=== PATIENT | female | born 1995 | race Caucasian/White ===

== ENCOUNTER 2019-05-04 10:37 | Inpatient (IN) | payer BC ==
[2019-05-04] MEDS ORDERED: Nalbuphine 10 MG/1 ML Vial IVPUSH PRN (10:50)
[2019-05-04] MEDS ORDERED: Lidocaine 1% 50 ML MDV INJECT PRN (10:50)
[2019-05-04] MEDS ORDERED: Carboprost Tromethamine 250 MCG/1 ML Amp IM PRN (10:50)
[2019-05-04] MEDS ORDERED: Butorphanol 1 MG/ML SDV IVPUSH PRN (10:50)
[2019-05-04] MEDS ORDERED: Sodium Chloride 0.9% 2.5 ML Syringe FLUSH PRN (10:50)
[2019-05-04] MEDS ORDERED: Misoprostol 200 MCG Tab PO PRN (10:50)
[2019-05-04] MEDS ORDERED: Sodium Chloride 0.9% 10 ML SDV IV PRN (10:50)
[2019-05-04] MEDS ORDERED: Methylergonovine 0.2 MG/1 ML Amp IM PRN (10:50)
[2019-05-04] MEDS ORDERED: Tranexamic Acid 1,000 MG in Sodium Chloride 0.9% 100 ML IV PRN (10:50)
[2019-05-04] MEDS ORDERED: Water For Irrigation,Sterile 1,000 ML Container IRR PRN (10:50)
[2019-05-04] MEDS ORDERED: Sodium Chloride 0.9% 10 ML Syringe FLUSH PRN (10:50)
[2019-05-04] MEDS ORDERED: Oxytocin/0.9 % Sodium Chloride 30 UNIT/500 ML BAG IV SCH ×2 (11:00→12:30)
[2019-05-04] MEDS ORDERED: Terbutaline 1 MG/ML SDV SUBCUT PRN (12:17)
[2019-05-04] MEDS ORDERED: Misoprostol 25 MCG (1/4 of 100 MCG) Tab VAG PRN ×2 (12:17)
[2019-05-04] MEDS: Lactated Ringers 1,000 ML IV SCH ×4 (17:10→21:25)
--- NOTE | 2019-05-04 19:53 | PCM.PREANE ---
Preanesthetic Assessment - Anesthesia/Transfusion/Family Hx Anesthesia History: Prior Anesthesia Without Reaction Transfusion History: No Prior Transfusion(s) - Review of Systems General: No Symptoms Pulmonary: No Symptoms Cardiovascular: No Symptoms Gastrointestinal: No Symptoms Neurological: No Symptoms Other: Reports: None - Physical Assessment NPO Status Date: 05/04/19 NPO Status Time: 19:40 Height: 1.65 m Weight: 77.111 kg ASA Class: 2E Mental Status: Alert & Oriented x3 Airway Class: Mallampati = 2 Dentition: Reports: Normal Dentition Thyro-Mental Finger Breadths: 3 Mouth Opening Finger Breadths: 3 ROM/Head Extension: Full Lungs: Clear to Auscultation, Normal Respiratory Effort Cardiovascular: Regular Rate, Regular Rhythm - Lab Values: Laboratory Last Values WBC 9.00 K/uL (4.0-11.0) 05/04/19 11:26 RBC 3.92 M/uL (4.30-5.90) L 05/04/19 11:26 Hgb 12.9 g/dL (12.0-16.0) 05/04/19 11:26 Hct 36.8 % (36.0-46.0) 05/04/19 11:26 MCV 93.9 fL (80.0-98.0) 05/04/19 11:26 MCH 32.9 pg (27.0-32.0) H 05/04/19 11:26 MCHC 35.1 g/dL (31.0-37.0) 05/04/19 11:26 RDW Std Deviation 45.7 fl (28.0-62.0) 05/04/19 11:26 RDW Coeff of Brock 13 % (11.0-15.0) 05/04/19 11:26 Plt Count 243 K/uL (150-400) 05/04/19 11:26 MPV 10.60 fL (7.40-12.00) 05/04/19 11:26 Nucleated RBC % 0.0 /100WBC 05/04/19 11:26 Nucleated RBCs # 0 K/uL 05/04/19 11:26 Blood Type A POSITIVE 05/04/19 11:26 Antibody Screen NEGATIVE 05/04/19 11:26 - Allergies Allergies/Adverse Reactions: Allergies Allergy/AdvReac Type Severity Reaction Status Date / Time No Known Allergies Allergy Verified 06/08/16 20:23 - Acknowledgements Anesthesia Type Planned: Epidural Pt an Appropriate Candidate for the Planned Anesthesia: Yes Alternatives and Risks of Anesthesia Discussed w Pt/Guardian: Yes Pt/Guardian Understands and Agrees with Anesthesia Plan: Yes PreAnesthesia Questionnaire HEENT History: Reports: None Cardiovascular History: Reports: None Respiratory History: Reports: None Gastrointestinal History: Reports: None Genitourinary History: Reports: None [employer] History: Reports: Musculoskeletal History: Reports: None Neurological History: Reports: None Psychiatric History: Reports: None Endocrine/Metabolic History: Reports: None Hematologic History: Reports: None Immunologic History: Reports: None Oncologic (Cancer) History: Reports: None Dermatologic History: Reports: None - Infectious Disease History Infectious Disease History: Reports: None - Past Surgical History HEENT Surgical History: Reports: Oral Surgery Other HEENT Surgeries/Procedures: wisdome teeth extraction-with sedation Cardiovascular Surgical History: Reports: None Respiratory Surgical History: Reports: None GI Surgical History: Reports: None Female Surgical History: Reports: None Musculoskeletal Surgical History: Reports: None - SUBSTANCE USE Smoking Status *Q: Never Smoker Second Hand Smoke Exposure: No Recreational Drug Use History: No - HOME MEDS Home Medications: Home Meds . [No Known Home Meds] 06/08/16 [History] - CURRENT (IN HOUSE) MEDS Current Meds: Current Medications Butorphanol Tartrate (Stadol) 1 mg IVPUSH Q1H PRN PRN Reason: Pain Carboprost Tromethamine (Hemabate Ds) 250 mcg IM ASDIRECTED PRN PRN Reason: Post Hemorrhage Lactated Ringer's (Ringers, Lactated) 1,000 mls @ 150 mls/hr IV ASDIRECTED CHAPO Last Admin: 05/04/19 17:10 Dose: 150 mls/hr Oxytocin/Sodium Chloride (Oxytocin 30 Unit/500 Ml-Ns) 30 unit in 500 mls @ 500 mls/hr IV TITRATE CHAPO Tranexamic Acid 1,000 mg/ (Sodium Chloride) 110 mls @ 660 mls/hr IV ONETIME PRN PRN Reason: Bleeding Oxytocin/Sodium Chloride (Oxytocin 30 Unit/500 Ml-Ns) 30 unit in 500 mls @ 2 mls/hr IV TITRATE CHAPO; Protocol Last Titration: 05/04/19 18:40 Dose: 6 munits/min, 6 mls/hr Lidocaine HCl (Xylocaine 1%) 50 ml INJECT ONETIME PRN PRN Reason: Laceration repair Methylergonovine Maleate (Methergine) 0.2 mg IM ASDIRECTED PRN PRN Reason: Post Hemorrhage Misoprostol (Cytotec) 200 mcg PO ONETIME PRN PRN Reason: Post Hemorrhage Misoprostol (Cytotec) 25 mcg VAG ONETIME PRN PRN Reason: Cervical Ripening Last Admin: 05/04/19 12:44 Dose: 25 mcg Misoprostol (Cytotec) 25 mcg VAG Q4H PRN PRN Reason: Cervical Ripening Nalbuphine HCl (Nubain) 10 mg IVPUSH Q1H PRN PRN Reason: Pain (severe 7-10) Sodium Chloride (Saline Flush) 10 ml FLUSH ASDIRECTED PRN PRN Reason: Keep Vein Open Sodium Chloride (Saline Flush) 2.5 ml FLUSH ASDIRECTED PRN PRN Reason: Keep Vein Open Sodium Chloride (Normal Saline) 10 ml IV ASDIRECTED PRN PRN Reason: IV Use Sterile Water (Sterile Water For Irrigation) 1,000 ml IRR ASDIRECTED PRN PRN Reason: delivery Terbutaline Sulfate (Brethine) 0.25 mg SUBCUT ASDIRECTED PRN PRN Reason: Tacysystole
[2019-05-04] MEDS ORDERED: Ropivacaine HCl/PF 100 ML ONE (20:10)
[2019-05-04] MEDS ORDERED: Lanolin 100% Cream 7 GM Tube TOP PRN (23:03)
[2019-05-04] MEDS ORDERED: Famotidine 20 MG Tab PO PRN (23:03)
[2019-05-04] MEDS ORDERED: Ibuprofen 800 MG Tab PO PRN (23:03)
[2019-05-04] MEDS ORDERED: Witch Hazel Medicated Pads 40/Jar TOP PRN (23:03)
[2019-05-04] MEDS ORDERED: Docusate Sodium 100 MG Cap PO PRN (23:03)
[2019-05-04] MEDS ORDERED: oxyCODONE 5 MG Tab PO PRN (23:03)
[2019-05-04] MEDS ORDERED: Benzocaine/Menthol 20%-0.5% Spray 78 GM Cannister TOP PRN (23:03)
[2019-05-04] MEDS ORDERED: Simethicone 80 MG Tab.Chew PO PRN (23:03)
[2019-05-04] MEDS ORDERED: Bisacodyl 10 MG Supp RECTAL PRN (23:03)
[2019-05-04] MEDS ORDERED: Acetaminophen 500 MG Tab PO PRN ×2 (23:03)
--- NOTE | 2019-05-04 23:12 | PCM.OPNOTE ---
- General Post-Op/Procedure Note Date of Surgery/Procedure: 05/04/19 Operative Procedure(s): Spontaneous vaginal delivery Findings: Live female infant, Apgars 8/9, weight pending, cord gases pending Pre Op Diagnosis: 23yo at 41w0d. Induction of labor for post-dates Post-Op Diagnosis: 23yo s/p spontaneous vaginal delivery at 41w0d Anesthesia Technique: Epidural Primary Surgeon: Vicki Nur Pathology: Placenta, cord gases, cord blood EBL in mLs: 300 Complications: none Condition: Good
--- NOTE | 2019-05-05 01:38 | OR ---
SURGEON: Vicki Nur MD DATE OF PROCEDURE: 05/04/2019 PREOPERATIVE DIAGNOSIS: A 23-year-old, G2, P0010 at 41 weeks and 0 days gestation being induced for post dates. POSTOPERATIVE DIAGNOSIS: A 23-year-old, G2, P1-0-1-1 status post spontaneous vaginal delivery at 41 weeks and 0 days gestation. PROCEDURE: Spontaneous vaginal delivery. PRIMARY SURGEON: Vicki Nur MD. ANESTHESIA: Epidural. ESTIMATED BLOOD LOSS: 300 mL. FINDINGS: Live female in cephalic presentation. score of 8 and 9 at 1 and 5 minutes respectively. Umbilical artery pH 7.17, umbilical vein pH 7.25. Weight 3630g. DESCRIPTION OF PROCEDURE: The patient presented from clinic for induction of labor due to postdates. Induction of labor began with Cytotec. After 1 dose of Cytotec, she had spontaneous rupture of membranes. At that time, Pitocin was begun. She received an epidural. She progressed to complete cervical dilation. She pushed and delivered a live female infant, score of 8 and 9 at 1 and 5 minutes respectively. The head delivered followed by the shoulders and remainder of body. The infant was placed on the maternal abdomen. After 60 seconds of delayed cord clamping, the cord was clamped and cut. The placenta then delivered spontaneously intact and with 3-vessel cord. Cord gases and cord blood were obtained. The perineum was inspected. Two perineal abrasions were noted and were hemostatic with pressure. Estimated blood loss was 300 mL. The patient and baby tolerated the delivery well. [id number] / MODL /[id number] MTDD
--- NOTE | 2019-05-05 07:46 | PCM48HPAN ---
Post Anesthesia Note - EVALUATION WITHIN 48HRS OF ANESTHETIC Vital Signs in Normal Range: Yes Patient Participated in Evaluation: Yes Respiratory Function Stable: Yes Airway Patent: Yes Cardiovascular Function Stable: Yes Hydration Status Stable: Yes Pain Control Satisfactory: Yes Nausea and Vomiting Control Satisfactory: Yes Mental Status Recovered: Yes Vital Signs: Last Vital Signs Temp 36.3 C 05/05/19 03:17 Pulse 79 05/05/19 03:17 Resp 16 05/05/19 03:17 BP 128/71 05/05/19 03:17 Pulse Ox 98 05/05/19 03:17 - COMMENTS/OBSERVATIONS Free Text/Narrative:: The patient tolerated the procedure well. There were no apparent anesthetic complications at this time.
--- NOTE | 2019-05-05 09:30 | PCM.PNPP ---
- General Info Date of Service: 05/05/19 Admission Dx/Problem (Free Text): Patient doing well. Moderate lochia. Denies pain. going well. Functional Status: Reports: Pain Controlled, Tolerating Diet, Ambulating, Urinating - Review of Systems General: Denies: Fever HEENT: Reports: No Symptoms Pulmonary: Denies: Shortness of Breath Cardiovascular: Denies: Chest Pain Gastrointestinal: Denies: Abdominal Pain Genitourinary: Denies: Dysuria Musculoskeletal: Reports: No Symptoms Skin: Reports: No Symptoms Neurological: Reports: No Symptoms Psychiatric: Reports: No Symptoms - Patient Data Vital Signs - Most Recent: Last Vital Signs Temp 36.6 C 05/05/19 08:40 Pulse 64 05/05/19 08:40 Resp 17 05/05/19 08:40 BP 126/69 05/05/19 08:40 Pulse Ox 98 05/05/19 08:40 Weight - Most Recent: 77.111 kg Lab Results - Last 24 Hours: Laboratory Results - last 24 hr 05/04/19 05/04/19 05/04/19 Range/Units 11:26 11:26 22:47 WBC 9.00 (4.0-11.0) K/uL RBC 3.92 L (4.30-5.90) M/uL Hgb 12.9 (12.0-16.0) g/dL Hct 36.8 (36.0-46.0) % MCV 93.9 (80.0-98.0) fL MCH 32.9 H (27.0-32.0) pg MCHC 35.1 (31.0-37.0) g/dL RDW Std Deviation 45.7 (28.0-62.0) fl RDW Coeff of Brock 13 (11.0-15.0) % Plt Count 243 (150-400) K/uL MPV 10.60 (7.40-12.00) fL Nucleated RBC % 0.0 /100WBC Nucleated RBCs # 0 K/uL Cord ABG pH 7.171 L (7.18-7.38) Cord ABG Base Excess -11 L (-10--2) Cord VBG pH 7.251 (7.25-7.45) Cord VBG Base Excess -11 L (-10--2) Blood Type A POSITIVE Antibody Screen NEGATIVE 05/05/19 Range/Units 05:55 WBC (4.0-11.0) K/uL RBC (4.30-5.90) M/uL Hgb 12.1 (12.0-16.0) g/dL Hct 35.1 L (36.0-46.0) % MCV (80.0-98.0) fL MCH (27.0-32.0) pg MCHC (31.0-37.0) g/dL RDW Std Deviation (28.0-62.0) fl RDW Coeff of Brock (11.0-15.0) % Plt Count (150-400) K/uL MPV (7.40-12.00) fL Nucleated RBC % /100WBC Nucleated RBCs # K/uL Cord ABG pH (7.18-7.38) Cord ABG Base Excess (-10--2) Cord VBG pH (7.25-7.45) Cord VBG Base Excess (-10--2) Blood Type Antibody Screen Med Orders - Current: Current Medications Acetaminophen (Tylenol Extra Strength) 500 mg PO Q4H PRN PRN Reason: Pain Acetaminophen (Tylenol Extra Strength) 1,000 mg PO Q4H PRN PRN Reason: Pain Benzocaine/Menthol (Dermoplast Pain Relief 20%-0.5% [place]) 78 gm TOP ASDIRECTED PRN PRN Reason: Perineal Comfort Measure Last Admin: 05/05/19 03:19 Dose: 1 can Bisacodyl (Dulcolax) 10 mg RECTAL ONETIME PRN PRN Reason: Constipation Butorphanol Tartrate (Stadol) 1 mg IVPUSH Q1H PRN PRN Reason: Pain Carboprost Tromethamine (Hemabate Ds) 250 mcg IM ASDIRECTED PRN PRN Reason: Post Hemorrhage Docusate Sodium (Colace) 100 mg PO BID PRN PRN Reason: Constipation Emollient Ointment (Lansinoh Hpa) 0 gm TOP ASDIRECTED PRN PRN Reason: Sore Nipples Famotidine (Pepcid) 20 mg PO BID PRN PRN Reason: Heartburn Lactated Ringer's (Ringers, Lactated) 1,000 mls @ 150 mls/hr IV ASDIRECTED CHAPO Last Admin: 05/04/19 21:25 Dose: 150 mls/hr Oxytocin/Sodium Chloride (Oxytocin 30 Unit/500 Ml-Ns) 30 unit in 500 mls @ 500 mls/hr IV TITRATE CHAPO Tranexamic Acid 1,000 mg/ (Sodium Chloride) 110 mls @ 660 mls/hr IV ONETIME PRN PRN Reason: Bleeding Oxytocin/Sodium Chloride (Oxytocin 30 Unit/500 Ml-Ns) 30 unit in 500 mls @ 2 mls/hr IV TITRATE CHAPO; Protocol Last Titration: 05/04/19 22:07 Dose: 6 munits/min, 6 mls/hr Ibuprofen (Motrin) 800 mg PO Q8H PRN PRN Reason: Pain Last Admin: 05/05/19 03:19 Dose: 800 mg Lidocaine HCl (Xylocaine 1%) 50 ml INJECT ONETIME PRN PRN Reason: Laceration repair Methylergonovine Maleate (Methergine) 0.2 mg IM ASDIRECTED PRN PRN Reason: Post Hemorrhage Misoprostol (Cytotec) 200 mcg PO ONETIME PRN PRN Reason: Post Hemorrhage Misoprostol (Cytotec) 25 mcg VAG ONETIME PRN PRN Reason: Cervical Ripening Last Admin: 05/04/19 12:44 Dose: 25 mcg Misoprostol (Cytotec) 25 mcg VAG Q4H PRN PRN Reason: Cervical Ripening Nalbuphine HCl (Nubain) 10 mg IVPUSH Q1H PRN PRN Reason: Pain (severe 7-10) Oxycodone HCl (Oxycodone) 5 mg PO Q2H PRN PRN Reason: Pain Simethicone (Simethicone) 80 mg PO Q4H PRN PRN Reason: Gas Sodium Chloride (Saline Flush) 10 ml FLUSH ASDIRECTED PRN PRN Reason: Keep Vein Open Sodium Chloride (Saline Flush) 2.5 ml FLUSH ASDIRECTED PRN PRN Reason: Keep Vein Open Sodium Chloride (Normal Saline) 10 ml IV ASDIRECTED PRN PRN Reason: IV Use Sterile Water (Sterile Water For Irrigation) 1,000 ml IRR ASDIRECTED PRN PRN Reason: delivery Last Admin: 05/04/19 21:55 Dose: 1,000 ml Terbutaline Sulfate (Brethine) 0.25 mg SUBCUT ASDIRECTED PRN PRN Reason: Tacysystole Witch Norma (Tucks) 1 pad TOP ASDIRECTED PRN PRN Reason: comfort care Last Admin: 05/05/19 03:19 Dose: 1 tube Discontinued Medications Ropivacaine (Naropin 0.2%) Confirm Administered Dose 100 mls @ as directed .ROUTE .STK-MED ONE Stop: 05/04/19 20:11 - Infant Interaction Infant Disposition, : [place] in Room with Family Infant Feeding: Attempted ; Nursed Fair/Poor Support Person: - Recovery Exam Fundal Tone: Firm Fundal Level: 1 Fingerbreadths Below Umbilicus Fundal Placement: Midline Lochia Amount: Scant Lochia Color: Rubra/Red Perineum Description: Intact, Minimal Bruising/Swelling Episiotomy/Laceration: None Bladder Status: Voiding - Exam General: Alert, Oriented Neck: Supple Lungs: Clear to Auscultation, Normal Respiratory Effort Cardiovascular: Regular Rate, Regular Rhythm GI/Abdominal Exam: Soft, Non-Tender Extremities: Normal Inspection Skin: Warm, Dry, Intact Neurological: No New Focal Deficit Psy/Mental Status: Alert, Normal Affect, Normal Mood - Problem List & Annotations (1) Vaginal delivery SNOMED Code(s): 307797876 Code(s): O80 - ENCOUNTER FOR FULL-TERM UNCOMPLICATED DELIVERY Status: Acute Current Visit: Yes - Problem List Review Problem List Initiated/Reviewed/Updated: No - My Orders Last 24 Hours: My Active Orders 05/04/19 23:03 Patient Status [ADT] Routine Notify Provider Vital Signs [RC] ASDIRECTED Acetaminophen [Tylenol Extra Strength] 1,000 mg PO Q4H PRN Acetaminophen [Tylenol Extra Strength] 500 mg PO Q4H PRN Benzocaine/Menthol [Dermoplast Pain Relief 20%-0.5% Dewar] 78 gm TOP ASDIRECTED PRN Bisacodyl [Dulcolax] 10 mg RECTAL ONETIME PRN Docusate Sodium [Colace] 100 mg PO BID PRN Famotidine [Pepcid] 20 mg PO BID PRN Ibuprofen [Motrin] 800 mg PO Q8H PRN Lanolin [Lansinoh HPA] See Dose Instructions TOP ASDIRECTED PRN Simethicone 80 mg PO Q4H PRN Witch Norma [Tucks] 1 pad TOP ASDIRECTED PRN oxyCODONE 5 mg PO Q2H PRN Assess Lochia [WOMSER] Per Unit Routine Assess Uterine Involution [WOMSER] Per Unit Routine Breast Pump [WOMSER] Per Unit Routine Ice Therapy [OM.PC] Per Unit Routine Perineal Care [OM.PC] Per Unit Routine Peripheral IV Discontinue [OM.PC] Routine Sitz Bath [OM.PC] Per Unit Routine 05/05/19 22:47 Ready for Discharge [RC] PER UNIT ROUTINE 05/05/19 Breakfast Regular Diet [DIET] - Assessment Assessment:: PPD#1 s/p spontaneous vaginal delivery - Plan Plan:: Patient desires discharge home at 24 hours if baby cleared. Reviewed discharge instructions.
[2019-05-06 08:19] VITALS: BP 127/69; PULSE 60
--- NOTE | 2019-05-06 10:44 | PCM.PNPP ---
- General Info Date of Service: 05/06/19 Admission Dx/Problem (Free Text): Patient doing well. Cramping worst when . Has been able to get some sleep. Voiding and ambulating. Minimal lochia. Functional Status: Reports: Pain Controlled, Tolerating Diet, Ambulating, Urinating - Review of Systems General: Reports: No Symptoms. Denies: Fever HEENT: Reports: No Symptoms Pulmonary: Denies: Shortness of Breath Cardiovascular: Denies: Chest Pain Gastrointestinal: Reports: Abdominal Pain Genitourinary: Reports: No Symptoms Musculoskeletal: Reports: No Symptoms Skin: Reports: No Symptoms Neurological: Reports: No Symptoms Psychiatric: Reports: No Symptoms - Patient Data Vital Signs - Most Recent: Last Vital Signs Temp 36.8 C 05/06/19 08:00 Pulse 60 05/06/19 08:00 Resp 16 05/06/19 08:00 BP 127/69 05/06/19 08:00 Pulse Ox 95 05/06/19 08:00 Weight - Most Recent: 77.111 kg Med Orders - Current: Current Medications Acetaminophen (Tylenol Extra Strength) 500 mg PO Q4H PRN PRN Reason: Pain Acetaminophen (Tylenol Extra Strength) 1,000 mg PO Q4H PRN PRN Reason: Pain Benzocaine/Menthol (Dermoplast Pain Relief 20%-0.5% [place]) 78 gm TOP ASDIRECTED PRN PRN Reason: Perineal Comfort Measure Last Admin: 05/05/19 03:19 Dose: 1 can Bisacodyl (Dulcolax) 10 mg RECTAL ONETIME PRN PRN Reason: Constipation Butorphanol Tartrate (Stadol) 1 mg IVPUSH Q1H PRN PRN Reason: Pain Carboprost Tromethamine (Hemabate Ds) 250 mcg IM ASDIRECTED PRN PRN Reason: Post Hemorrhage Docusate Sodium (Colace) 100 mg PO BID PRN PRN Reason: Constipation Emollient Ointment (Lansinoh Hpa) 0 gm TOP ASDIRECTED PRN PRN Reason: Sore Nipples Last Admin: 05/05/19 18:30 Dose: 7 gm Famotidine (Pepcid) 20 mg PO BID PRN PRN Reason: Heartburn Lactated Ringer's (Ringers, Lactated) 1,000 mls @ 150 mls/hr IV ASDIRECTED CHAPO Last Admin: 05/04/19 21:25 Dose: 150 mls/hr Oxytocin/Sodium Chloride (Oxytocin 30 Unit/500 Ml-Ns) 30 unit in 500 mls @ 500 mls/hr IV TITRATE CHAPO Tranexamic Acid 1,000 mg/ (Sodium Chloride) 110 mls @ 660 mls/hr IV ONETIME PRN PRN Reason: Bleeding Oxytocin/Sodium Chloride (Oxytocin 30 Unit/500 Ml-Ns) 30 unit in 500 mls @ 2 mls/hr IV TITRATE CHAPO; Protocol Last Titration: 05/04/19 22:07 Dose: 6 munits/min, 6 mls/hr Ibuprofen (Motrin) 800 mg PO Q8H PRN PRN Reason: Pain Last Admin: 05/05/19 03:19 Dose: 800 mg Lidocaine HCl (Xylocaine 1%) 50 ml INJECT ONETIME PRN PRN Reason: Laceration repair Methylergonovine Maleate (Methergine) 0.2 mg IM ASDIRECTED PRN PRN Reason: Post Hemorrhage Misoprostol (Cytotec) 200 mcg PO ONETIME PRN PRN Reason: Post Hemorrhage Misoprostol (Cytotec) 25 mcg VAG ONETIME PRN PRN Reason: Cervical Ripening Last Admin: 05/04/19 12:44 Dose: 25 mcg Misoprostol (Cytotec) 25 mcg VAG Q4H PRN PRN Reason: Cervical Ripening Nalbuphine HCl (Nubain) 10 mg IVPUSH Q1H PRN PRN Reason: Pain (severe 7-10) Oxycodone HCl (Oxycodone) 5 mg PO Q2H PRN PRN Reason: Pain Simethicone (Simethicone) 80 mg PO Q4H PRN PRN Reason: Gas Sodium Chloride (Saline Flush) 10 ml FLUSH ASDIRECTED PRN PRN Reason: Keep Vein Open Sodium Chloride (Saline Flush) 2.5 ml FLUSH ASDIRECTED PRN PRN Reason: Keep Vein Open Sodium Chloride (Normal Saline) 10 ml IV ASDIRECTED PRN PRN Reason: IV Use Sterile Water (Sterile Water For Irrigation) 1,000 ml IRR ASDIRECTED PRN PRN Reason: delivery Last Admin: 05/04/19 21:55 Dose: 1,000 ml Terbutaline Sulfate (Brethine) 0.25 mg SUBCUT ASDIRECTED PRN PRN Reason: Tacysystole [place] Norma (Tucks) 1 pad TOP ASDIRECTED PRN PRN Reason: comfort care Last Admin: 05/05/19 03:19 Dose: 1 tube Discontinued Medications Ropivacaine (Naropin 0.2%) Confirm Administered Dose 100 mls @ as directed .ROUTE .STK-MED ONE Stop: 05/04/19 20:11 Last Admin: 05/05/19 19:25 Dose: Not Given - Infant Interaction Disposition, : in Room with Family Interaction: Holding Infant Feeding: Attempted ; Nursed Fair/Poor Support Person: Significant Other - Recovery Exam Fundal Tone: Firm Fundal Level: 1 Fingerbreadths Below Umbilicus Fundal Placement: Midline Lochia Amount: Scant Lochia Color: Rubra/Red Perineum Description: Intact, Minimal Bruising/Swelling, Other (see below) Other Perinuem Description: skid torre Episiotomy/Laceration: Approximated Bladder Status: Voiding Urinary Elimination: Voided - Exam General: Alert, Oriented, Cooperative Neck: Supple Lungs: Clear to Auscultation Cardiovascular: Regular Rate, Regular Rhythm GI/Abdominal Exam: Soft, Non-Tender Extremities: Normal Inspection Skin: Warm, Dry, Intact Neurological: No New Focal Deficit Psy/Mental Status: Alert, Normal Affect, Normal Mood - Problem List & Annotations (1) Vaginal delivery SNOMED Code(s): 801195139 Code(s): O80 - ENCOUNTER FOR FULL-TERM UNCOMPLICATED DELIVERY Status: Acute Current Visit: Yes - Problem List Review Problem List Initiated/Reviewed/Updated: Yes - My Orders Last 24 Hours: My Active Orders 05/05/19 22:47 Ready for Discharge [RC] PER UNIT ROUTINE 05/06/19 10:41 Ready for Discharge [RC] PER UNIT ROUTINE - Assessment Assessment:: PPD#2 s/p spontaneous vaginal delivery - Plan Plan:: Baby cleared by Peds for discharge home today. Reviewed discharge instructions.
== END 2019-05-06 11:35 | disposition home or self-care (01) | DRG 560 ==
LOC: MW.OB 10:37 → OBSVTOIN 22:47 → MW.OB 05-05 03:20
PROVIDERS: ADMIT Obstetrics & Gynecology; ATTEND Obstetrics & Gynecology
PROC: 10E0XZZ Delivery of Products of Conception, External Approach (ICD-10-PCS; principal; 2019-05-04)
PROC: 3E0P7VZ Introduction of Hormone into Female Reproductive, Via Natural or Artificial Opening (ICD-10-PCS; 2019-05-04)
DX: O48.0 Post-term pregnancy (principal); O76 Abnormality in fetal heart rate and rhythm complicating labor and delivery; Z3A.41 41 weeks gestation of pregnancy; Z37.0 Single live birth
CPT/HCPCS: 36415; 59025; 59409; 82803; 85014; 85018; 85027; 86850; 86900; 86901; A9270-GY; J2590; J2795; J7120